=== PATIENT | female | born 1960 | race American Indian/Alaskan Native ===

== ENCOUNTER 2016-02-08 16:36 | Emergency (ER) | payer MEDICARE ==
--- NOTE | 2016-02-08 22:01 | Emergency Department Report ---
ED ENT HPI - General Chief complaint: Earache Stated complaint: LEFT EAR AND NECK PAIN Time Seen by Provider: 02/08/16 21:49 Source: patient Mode of arrival: Ambulatory Limitations: No Limitations - History of Present Illness Initial comments: 55 y/o female complain of left jaw pain x 4 days complaint: other (left jaw pain ) Onset/Timin -: days(s) Location: tooth # Severity: moderate Severity scale (0 -10): 6 Quality: aching Consistency: constant Improves with: none Worsens with: none Associated Symptoms: toothache - Related Data Previous Rx's Medication Instructions Recorded Last Taken Type Gabapentin 400 mg PO QID #120 capsule 10/15/13 Unknown Rx HYDROcodone/APAP 7.5-325 [[place] 1 each PO Q6HR PRN #20 tablet 10/15/13 Unknown Rx 7.5/325 mg] Lisinopril/Hydrochlorothiazide 1 each PO DAILY #60 tablet 10/15/13 Unknown Rx [Zestoretic 20-12.5 mg] Meloxicam [Mobic] 7.5 mg PO QDAY #30 tablet 10/15/13 Unknown Rx HYDROcodone/APAP 5-325 [R[place] 1 each PO Q6HR PRN #10 tablet 02/08/16 Unknown Rx 5/325] Penicillin Vk [Veetids TAB] 250 mg PO QID #28 tablet 02/08/16 Unknown Rx Allergies Allergy/AdvReac Type Severity Reaction Status Date / Time No Known Allergies Allergy Unverified 10/15/13 11:38 ED Dental HPI - General Chief complaint: Earache Stated complaint: LEFT EAR AND NECK PAIN Time Seen by Provider: 02/08/16 21:49 Source: patient Mode of arrival: Ambulatory Limitations: No Limitations - Related Data Previous Rx's Medication Instructions Recorded Last Taken Type Gabapentin 400 mg PO QID #120 capsule 10/15/13 Unknown Rx HYDROcodone/APAP 7.5-325 [[place] 1 each PO Q6HR PRN #20 tablet 10/15/13 Unknown Rx 7.5/325 mg] Lisinopril/Hydrochlorothiazide 1 each PO DAILY #60 tablet 10/15/13 Unknown Rx [Zestoretic 20-12.5 mg] Meloxicam [Mobic] 7.5 mg PO QDAY #30 tablet 10/15/13 Unknown Rx HYDROcodone/APAP 5-325 [[place] 1 each PO Q6HR PRN #10 tablet 02/08/16 Unknown Rx 5/325] Penicillin Vk [Veetids TAB] 250 mg PO QID #28 tablet 02/08/16 Unknown Rx Allergies Allergy/AdvReac Type Severity Reaction Status Date / Time No Known Allergies Allergy Unverified 10/15/13 11:38 ED Review of Systems ROS: Stated complaint: LEFT EAR AND NECK PAIN Other details as noted in HPI Constitutional: denies: chills, fever Eyes: denies: eye pain, eye discharge, vision change ENT: dental pain. denies: ear pain, throat pain Respiratory: denies: cough, shortness of breath, wheezing Cardiovascular: denies: chest pain, palpitations Endocrine: no symptoms reported Gastrointestinal: denies: abdominal pain, nausea, diarrhea Genitourinary: denies: urgency, dysuria, discharge Musculoskeletal: denies: back pain, joint swelling, arthralgia Skin: denies: rash, lesions Neurological: denies: headache, weakness, paresthesias Psychiatric: denies: anxiety, depression Hematological/Lymphatic: denies: easy bleeding, easy bruising ED Past Medical Hx - Past Medical History Previous Medical History?: Yes Hx Hypertension: Yes Hx Diabetes: Yes Hx Arthritis: Yes - Surgical History Past Surgical History?: No - Social History Smoking Status: Current Every Day Smoker Substance Use Type: Alcohol, Prescribed - Medications Home Medications: Home Medications Medication Instructions Recorded Confirmed Last Taken Type Gabapentin 400 mg PO QID #120 capsule 10/15/13 Unknown Rx HYDROcodone/APAP 7.5-325 [R[place] 1 each PO Q6HR PRN #20 tablet 10/15/13 Unknown Rx 7.5/325 mg] Lisinopril/Hydrochlorothiazide 1 each PO DAILY #60 tablet 10/15/13 Unknown Rx [Zestoretic 20-12.5 mg] Meloxicam [Mobic] 7.5 mg PO QDAY #30 tablet 10/15/13 Unknown Rx HYDROcodone/APAP 5-325 [[place] 1 each PO Q6HR PRN #10 tablet 02/08/16 Unknown Rx 5/325] Penicillin Vk [Veetids TAB] 250 mg PO QID #28 tablet 02/08/16 Unknown Rx ED Physical Exam - General Limitations: No Limitations General appearance: alert, in no apparent distress - Head Head exam: Present: atraumatic, normocephalic - Eye Eye exam: Present: normal appearance, PERRL - ENT ENT exam: Present: mucous membranes moist - Expanded ENT Exam Expanded Mouth exam: Present: normal external inspection. Absent: drooling, trismus Teeth exam: Present: fractured tooth # (16 and 17) - Neck Neck exam: Present: normal inspection - Respiratory Respiratory exam: Present: normal lung sounds bilaterally. Absent: respiratory distress, wheezes, rales - Cardiovascular Cardiovascular Exam: Present: regular rate, normal rhythm. Absent: systolic murmur, diastolic murmur, rubs, gallop - GI/Abdominal GI/Abdominal exam: Present: soft, normal bowel sounds - Extremities Exam Extremities exam: Present: normal inspection - Back Exam Back exam: Present: normal inspection - Neurological Exam Neurological exam: Present: alert, oriented X3 - Psychiatric Psychiatric exam: Present: normal affect, normal mood - Skin Skin exam: Present: warm, dry, intact, normal color. Absent: rash ED Course Vital Signs 02/08/16 18:31 Temperature 98.6 F Pulse Rate 89 Respiratory 20 Rate Blood Pressure 143/95 O2 Sat by Pulse 98 Oximetry ED Medical Decision Making - Medical Decision Making toothache dental cavity noted tooth #16 and 17 Critical care attestation.: If time is entered above; I have spent that time in minutes in the direct care of this critically ill patient, excluding procedure time. ED Disposition Clinical Impression: Tooth ache Disposition: DISCHARGED TO HOME OR SELFCARE Is pt being admited?: No Does the pt Need Aspirin: No Condition: Stable Instructions: Toothache (ED) Prescriptions: HYDROcodone/APAP 5-325 [Rap[place] 5/325] 1 each PO Q6HR PRN #10 tablet PRN Reason: Pain Penicillin Vk [Veetids TAB] 250 mg PO QID #28 tablet Time of Disposition: 22:12
[2016-02-08 22:44] VITALS: BP 122/88
== END 2016-02-08 22:12 | disposition home or self-care (01) ==
LOC: ED 16:36
DX: K08.89 Other specified disorders of teeth and supporting structures (principal); I10 Essential (primary) hypertension; E11.9 Type 2 diabetes mellitus without complications; F17.200 Nicotine dependence, unspecified, uncomplicated; Z87.39 Personal history of other diseases of the musculoskeletal system and connective tissue
CPT/HCPCS: 99282

== ENCOUNTER 2019-01-26 10:47 | Emergency (ER) | payer MEDICARE ==
[2019-01-26 10:54] VITALS: BP 142/83
[2019-01-26] MEDS ORDERED: metroNIDAZOLE 500 MG TAB PO ONE (14:20)
--- NOTE | 2019-01-26 14:20 | Emergency Department Report ---
ED General Adult HPI - General Chief complaint: Urogenital-Female Stated complaint: VAG DISCHARGE Time Seen by Provider: 01/26/19 12:57 Source: patient Mode of arrival: Ambulatory Limitations: No Limitations - History of Present Illness Initial comments: 58-year-old -[place] female patient presents with complaints of vaginal discharge and irritation 4 days. Patient states her symptoms began after using some eaves. She denies any dysuria/hematuria/urinary frequency, vaginal bleeding, or dyspareunia. She states the outer portion of her vagina is irritated and there is a yellowish white discharge. She states [id number] medications have helped with the irritation. She denies any fever or abdominal pain. Patient states she is not suspicious for STI's in declines testing -: Sudden - Related Data Previous Rx's Medication Instructions Recorded Last Taken Type Gabapentin 400 mg PO QID #120 capsule 10/15/13 Unknown Rx HYDROcodone/APAP 7.5-325 [Gordon 1 each PO Q6HR PRN #20 tablet 10/15/13 Unknown Rx 7.5/325 mg] Lisinopril/Hydrochlorothiazide 1 each PO DAILY #60 tablet 10/15/13 Unknown Rx [Zestoretic 20-12.5 mg] Meloxicam [Mobic] 7.5 mg PO QDAY #30 tablet 10/15/13 Unknown Rx HYDROcodone/APAP 5-325 [Gordon 1 each PO Q6HR PRN #10 tablet 02/08/16 Unknown Rx 5/325] Penicillin Vk [Veetids TAB] 250 mg PO QID #28 tablet 02/08/16 Unknown Rx Sulfamethoxazole/Trimethoprim 1 each PO BID #14 tablet 01/11/18 Unknown Rx [Bactrim DS TAB] metroNIDAZOLE [Flagyl] 500 mg PO Q12HR #14 tab 01/11/18 Unknown Rx Fluconazole [Diflucan TAB] 150 mg PO ONCE #1 tablet 01/26/19 Unknown Rx Allergies Allergy/AdvReac Type Severity Reaction Status Date / Time No Known Allergies Allergy Verified 01/11/18 14:01 ED Review of Systems ROS: Stated complaint: VAG DISCHARGE Other details as noted in HPI Comment: All other systems reviewed and negative Genitourinary: as per HPI ED Past Medical Hx - Past Medical History Previous Medical History?: Yes Hx Hypertension: Yes Hx Diabetes: Yes Hx Arthritis: Yes - Surgical History Past Surgical History?: Yes Additional Surgical History: carpel tunnel - Social History Smoking Status: Current Every Day Smoker Substance Use Type: Prescribed - Medications Home Medications: Home Medications Medication Instructions Recorded Confirmed Last Taken Type Gabapentin 400 mg PO QID #120 capsule 10/15/13 Unknown Rx HYDROcodone/APAP 7.5-325 [Gordon 1 each PO Q6HR PRN #20 tablet 10/15/13 Unknown Rx 7.5/325 mg] Lisinopril/Hydrochlorothiazide 1 each PO DAILY #60 tablet 10/15/13 Unknown Rx [Zestoretic 20-12.5 mg] Meloxicam [Mobic] 7.5 mg PO QDAY #30 tablet 10/15/13 Unknown Rx HYDROcodone/APAP 5-325 [Gordon 1 each PO Q6HR PRN #10 tablet 02/08/16 Unknown Rx 5/325] Penicillin Vk [Veetids TAB] 250 mg PO QID #28 tablet 02/08/16 Unknown Rx Sulfamethoxazole/Trimethoprim 1 each PO BID #14 tablet 01/11/18 Unknown Rx [Bactrim DS TAB] metroNIDAZOLE [Flagyl] 500 mg PO Q12HR #14 tab 01/11/18 Unknown Rx Fluconazole [Diflucan TAB] 150 mg PO ONCE #1 tablet 01/26/19 Unknown Rx ED Physical Exam - General Limitations: No Limitations General appearance: alert, in no apparent distress - Head Head exam: Present: atraumatic, normocephalic - Eye Eye exam: Present: normal appearance - ENT ENT exam: Present: mucous membranes moist - Neck Neck exam: Present: normal inspection - Respiratory Respiratory exam: Absent: respiratory distress - Cardiovascular Cardiovascular Exam: Present: regular rate - GI/Abdominal GI/Abdominal exam: Present: soft, normal bowel sounds. Absent: distended, tenderness, guarding, rebound, rigid - External exam: Present: other (irritation noted at the opening of the vaginal canal with chunky white discharge) Speculum exam: Present: vaginal discharge (LO discharge) Bi-manual exam: Absent: cervical motion tendernes ED Course Vital Signs 01/26/19 10:51 Temperature 98.3 F Pulse Rate 18 L Respiratory 18 Rate Blood Pressure 142/83 O2 Sat by Pulse 97 Oximetry ED Medical Decision Making - Medical Decision Making 58-year-old -[place] female patient presents with complaints of vaginal discharge and irritation 4 days. She declined STI testing. No cervical motion tenderness noted on exam. Wet prep is positive for Trichomonas. Patient given Flagyl for treatment. Vitals are stable. Recommend patient follows up with her primary care provider for further STI testing. Informed to have her partner tested and treated. Discussed strict return precautions in detail with patient who states understanding Critical care attestation.: If time is entered above; I have spent that time in minutes in the direct care of this critically ill patient, excluding procedure time. ED Disposition Clinical Impression: Trichomonal infection Disposition: TO HOME OR SELFCARE Is pt being admited?: No Condition: Stable Instructions: Trichomoniasis (ED), Vulvovaginal Candidiasis (ED) Prescriptions: Fluconazole [Diflucan TAB] 150 mg PO ONCE #1 tablet Referrals: PRIMARY CARE, [Primary Care Provider] - 3-5 Days
== END 2019-01-26 14:52 | disposition home or self-care (01) ==
LOC: ED 10:47
DX: A59.01 Trichomonal vulvovaginitis (principal); I10 Essential (primary) hypertension; E11.9 Type 2 diabetes mellitus without complications; M19.90 Unspecified osteoarthritis, unspecified site; Z98.890 Other specified postprocedural states; F17.200 Nicotine dependence, unspecified, uncomplicated; Z79.899 Other long term (current) drug therapy
CPT/HCPCS: 87210; 99282